=== PATIENT | female | born 1960 | race Two or more races ===

== ENCOUNTER → 2018-08-20 | Outpatient (CLI) | payer OTHER ==
[~2018-08-20] MED LIST: ALTACE5 MG PO; AVALIDE 300-121 EACH PO; AVAPRO150 MG PO; CARBAMAZEPINE PO; CLARITIN10 M1 PO; CLONAZEPAM1 MG PO; COUMADIN10 MG PO; CYMBALTA60 MG PO; LYRICA150 MG PO; OXYCONTIN10 MG; OXYCONTIN10 MG PO; PANTOPRAZOLE SO40 MG PO; PERCOCET 5-3251 EACH PO; PERCOCET 5/3251 TAB PO; SINGULAIR10 MG PO; SKELAXIN800 MG PO; SYMBICORT 16010.2 GM IH; TRAZODONE HCL100 MG PO; XARELTO20 MG PO; [UNRECOGNIZED DRUG - OTHER] PO
== END | disposition home or self-care (01) ==
LOC: LAB 13:37
DX: M51.06 Intervertebral disc disorders with myelopathy, lumbar region (principal); G56.03 Carpal tunnel syndrome, bilateral upper limbs; Z79.899 Other long term (current) drug therapy; Z79.01 Long term (current) use of anticoagulants; L20.84 Intrinsic (allergic) eczema; J45.40 Moderate persistent asthma, uncomplicated; D68.59 Other primary thrombophilia; I70.0 Atherosclerosis of aorta; R29.6 Repeated falls; M54.5 Low back pain; D68.69 Other thrombophilia; F39 Unspecified mood [affective] disorder; H90.5 Unspecified sensorineural hearing loss; S46.002D Unspecified injury of muscle(s) and tendon(s) of the rotator cuff of left shoulder, subsequent encounter; G90.59 Complex regional pain syndrome I of other specified site

== ENCOUNTER → 2018-08-21 | Day surgery (SDC) | payer OTHER | END | disposition home or self-care (01) | LOC: ADM 08-20 15:15 → CIR.AMB 07:55 | DX: G90.521 Complex regional pain syndrome I of right lower limb (principal) ==

== ENCOUNTER 2018-09-22 13:19 | Outpatient (CLI) | payer OTHER | END 2018-09-22 13:35 | disposition home or self-care (01) | LOC: LAB 13:19 | DX: D68.8 Other specified coagulation defects (principal); E78.2 Mixed hyperlipidemia; N39.0 Urinary tract infection, site not specified; I10 Essential (primary) hypertension ==